=== PATIENT | male | born 1940 | race Caucasian/White ===

== ENCOUNTER 2017-04-28 10:56 | Outpatient (CLI) | payer MEDICARE ==
[2017-04-28 11:26] LABS: Hematocrit 50.9 % (35.5-45.6); Hemoglobin 17.1 gm/dl (11.8-15.2); Mean Corpuscular HGB Conc 34 % (32-34); Mean Corpuscular Hemoglobin 31 pg (28-32); Mean Corpuscular Volume 92 fl (84-94); Platelet Count 191 K/mm3 (140-440); Red Blood Count 5.53 M/mm3 (3.65-5.03); Red Cell Distribution Width 14.2 % (13.2-15.2); White Blood Count 8.8 K/mm3 (4.5-11.0)
[2017-04-28 11:43] LABS: Alanine Aminotransferase 8 units/L (7-56); Albumin 4.4 g/dL (3.9-5); Albumin/Globulin Ratio 1.4 %; Alkaline Phosphatase 47 units/L (35-129); Anion Gap 17 mmol/L; BUN/Creatinine Ratio 18; Blood Urea Nitrogen 18 mg/dL (9-20); Calcium 10.5 mg/dL (8.4-10.2); Carbon Dioxide 29 mmol/L (22-30); Chloride 98.9 mmol/L (98-107); Glucose 88 mg/dL (75-100); Potassium 3.5 mmol/L (3.6-5.0); Sodium 141 mmol/L (137-145); Total Protein 7.6 g/dL (6.3-8.2)
== END 2017-04-28 10:57 | disposition home or self-care (01) ==
LOC: LAB 10:56
PROVIDERS: ATTEND Specialist
DX: G20 Parkinson's disease (principal); I10 Essential (primary) hypertension; Z87.891 Personal history of nicotine dependence
CPT/HCPCS: 36415; 80053; 82607; 82747; 84439; 84443; 85027

== ENCOUNTER 2017-05-13 09:22 | Outpatient (CLI) | payer MEDICARE, OTHER | END 2017-05-13 09:23 | disposition home or self-care (01) | LOC: SPVIMAG 09:22 → MRI 09:22 → SPVIMAG 09:23 | PROVIDERS: ATTEND Specialist | DX: G20 Parkinson's disease (principal); I10 Essential (primary) hypertension; Z87.891 Personal history of nicotine dependence | CPT/HCPCS: 70551 ==